=== PATIENT | male | born 2000 | race African-American/Black ===

== ENCOUNTER 2024-08-22 18:56 | Emergency (ER) | payer MEDICAID ==
[~2024-08-22] VITALS: Ht 200.7 cm; Wt 148.0 kg
[2024-08-22 18:57] VITALS: BP 151/56; PULSE 96; RESP 16; TEMP 36.7; O2SAT 98
== END 2024-08-22 23:05 | disposition left against medical advice (07) ==
LOC: ER 18:56
DX: S61.211A Laceration without foreign body of left index finger without damage to nail, initial encounter (principal); J45.909 Unspecified asthma, uncomplicated; Z53.21 Procedure and treatment not carried out due to patient leaving prior to being seen by health care provider; X58.XXXA Exposure to other specified factors, initial encounter; Y93.89 Activity, other specified; Y92.89 Other specified places as the place of occurrence of the external cause; Y99.8 Other external cause status